=== PATIENT | male | born 1955 | race Two or more races ===

== ENCOUNTER → 2024-09-26 | Outpatient (CLI) | payer MEDICARE, MEDICAID, SELFPAY ==
--- NOTE | 2024-09-26 07:30 | XR_ITS ---
Examination: MRI lumbar spine without contrast Date and time of exam: September 26, 2024 at 0758 hours INDICATIONS: Low back pain radiating down both legs paresthesias in the legs beginning June 2024 Technique: Multiple MRI axial and sagittal sections lumbar spine. Sagittal T2-weighted images, TR 3500, TE 118 T1 weighted transverse sections, TR 688 T8.5, T2-weighted sagittal sections T1 weighted sagittal sections TR 621, TE 30 T2 axial sections, TR 4, 190, TE 84. Findings: Adequate alignment lumbar vertebral bodies on the lateral view Diffuse lumbar disc desiccation Moderate lumbar spondylosis Moderate disc narrowing L3-L4 No spondylolisthesis L5-S1 7 mm central lumbar disc bulge extending to the foraminal regions with moderate left mild right L5 ganglionic compression L4-L5 9 mm central lumbar disc bulge extending to the foraminal regions with mild left L4 ganglionic compression L3-L4 9 mm central lumbar disc bulge L2-L3 no disc protrusion L1-L2 no disc protrusion IMPRESSION: L5-S1 7 mm central lumbar disc bulge with moderate left mild right L5 ganglionic compression L4-L5 9 mm central lumbar disc bulge extending to the foraminal regions with mild left L4 ganglionic compression L3-L4 9 mm central lumbar disc bulge
== END | disposition home or self-care (01) ==
PROVIDERS: PCP Physician Assistant; Referring Provider Physician Assistant; Visit Provider Physician Assistant
DX: G95.20 Unspecified cord compression (principal); M51.379 Other intervertebral disc degeneration, lumbosacral region without mention of lumbar back pain or lower extremity pain; M51.369 Other intervertebral disc degeneration, lumbar region without mention of lumbar back pain or lower extremity pain
CPT/HCPCS: 72148